=== PATIENT | female | born 1985 | race Caucasian/White ===

== ENCOUNTER 2017-05-20 16:25 | Emergency (ER) | payer OTHER ==
[2017-05-20 16:32] VITALS: BP 125/83
[2017-05-20] MEDS ORDERED: DEXAMETHASONE 4 MG TABLET PO ONE (16:46)
--- NOTE | 2017-05-20 16:52 | ER Document Report ---
ED Oral Problem - General Chief Complaint: Sore Throat Stated Complaint: SORE THROAT Time Seen by Provider: 05/20/17 16:36 Mode of Arrival: Ambulatory Information source: Patient TRAVEL OUTSIDE OF THE [place] IN LAST 30 DAYS: Yes - HPI Patient complains to provider of: Sore throat Onset: Last week Onset: Gradual Quality of pain: Achy Severity: Moderate Pain Level: 3 Sore throat: Moderate Associated symptoms: Chills, Earache, Fever. denies: Cough, Decreased appetite , Dental decay, Difficulty speaking, Drainage, Drooling, Facial pain, Jaw pain, Short of breath, Sweaty, Toothache, Tongue swelling, Unable to swallow, White patches in mouth Worsened by: Other - swallowing Relieved by: Nothing Recently seen / treated by doctor/dentist: Yes Notes: Patient arrives with complaint of sore throat started early this week. She has had fever with it. She denies any nasal congestion or cough. She states that she feels like her throat is more swollen and she is having increased pain with swallowing. She was seen by her primary care doctor a few days ago who obtained a strep swab. But the patient states that she did not actually touch the back of her throat with a swab. She seems to be getting worse in 1 to be evaluated. No difficulty breathing or swallowing. No chest pain or shortness of breath. No other complaints. Past Medical History - Social History Smoking Status: Unknown if Ever Smoked Family History: Reviewed & Not Pertinent Patient has suicidal ideation: No Patient has homicidal ideation: No Renal/ Medical History: Denies: Hx Peritoneal Dialysis Review of Systems - Review of Systems -: Yes All other systems reviewed and negative Physical Exam - Vital signs Vitals: Temp Pulse Resp BP Pulse Ox 99.2 F 89 16 125/83 97 05/20/17 16:27 05/20/17 16:27 05/20/17 16:27 05/20/17 16:27 05/20/17 16:27 - Notes Notes: GENERAL: alert, cooperative, nontoxic, no distress. HEAD: normocephalic, atraumatic EYES: conjunctiva pink without discharge, no external redness or swelling. EARS: no external swelling, no external redness, TMs are pearly casas with normal landmarks. No perforation. No erythema or bulging. NOSE: atraumatic, no external swelling MOUTH/THROAT: mucous membranes moist and pink. Posterior pharynx with mild erythema slight swelling. No trismus or drooling. Uvula is midline. No stridor. NECK: soft, supple, full range of motion, no meningismus. Anterior cervical lymphadenopathy bilaterally. No posterior lymphadenopathy. CHEST: no distress, lungs clear and equal throughout. No wheezing, rales, rhonchi. CARDIAC: regular rate and rhythm, no murmur, normal capillary refill, normal pulses. BACK: full range of motion, no CVA tenderness. EXTREMITIES: full range of motion of all extremities. No redness, no swelling. NEURO: alert and oriented 3, no focal deficits, full range of motion of all extremities. PYSCH: appropriate mood, affect. Patient is cooperative. SKIN: pink, warm, dry, no rash. Course - Re-evaluation Re-evalutation: 05/20/17 16:54 Patient is nontoxic appearing with stable vitals. She has had a sore throat for the last several days it seems to be getting worse. She has had no URI symptoms to go along with it. She is noted to have erythema to the posterior pharynx with no sign of peritonsillar abscess. She has no anterior cervical lymphadenopathy. She has had fever with this as well, although she is afebrile here. The patient will be given a dose of Decadron in the emergency department. She will be discharged home on Keflex for pharyngitis. She has a history of penicillin allergy, but states that she has taken Keflex in the past without difficulty. She was instructed to continue taking ibuprofen and Tylenol as needed. Follow-up for worsening symptoms, difficulty breathing or swallowing, or any further concerns. The patient is noted to have elevated blood pressure during today's emergency department visit. The patient was informed of this finding. The patient was instructed that this may be related to pre-hypertension and requires further evaluation with a primary care provider. The patient has no hypertensive symptoms at this time. - Vital Signs Vital signs: Temp Pulse Resp BP Pulse Ox 99.2 F 89 16 125/83 97 05/20/17 16:27 05/20/17 16:27 05/20/17 16:27 05/20/17 16:27 05/20/17 16:27 Discharge - Discharge Clinical Impression: Pharyngitis Qualifiers: Pharyngitis/tonsillitis etiology: unspecified etiology Qualified Code(s): J02.9 - Acute pharyngitis, unspecified Condition: Stable Disposition: HOME, SELF-CARE Instructions: Sore Throat ([facility]) Additional Instructions: Take medications as prescribed. Take ibuprofen and Tylenol as needed for pain or fever. Follow-up if not better in 3 days, sooner for increased pain, fever, difficulty breathing or swallowing, or any further concerns. Change her toothbrush in 48 hours. Your blood pressure was elevated during today's visit. Have this rechecked with your doctor. Prescriptions: Cephalexin Monohydrate [Keflex 500 mg Capsule] 500 mg PO BID #20 capsule Forms: Elevated Blood Pressure, Return to Work
== END 2017-05-20 17:00 | disposition home or self-care (01) ==
LOC: ER 16:25
DX: J02.9 Acute pharyngitis, unspecified (principal); H92.09 Otalgia, unspecified ear; R03.0 Elevated blood-pressure reading, without diagnosis of hypertension; Z88.0 Allergy status to penicillin
CPT/HCPCS: 99282